=== PATIENT | female | born 1965 | race Caucasian/White ===

== ENCOUNTER 2023-06-14 10:46 | Emergency (ER) | payer OTHER ==
[~2023-06-14] VITALS: Ht 167.6 cm; Wt 67.1 kg
--- NOTE | 2023-06-14 11:59 | NUR ---
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
[2023-06-14] MEDS ORDERED: ibuprofen tablet 400 MG TABLET PO ONE (12:50)
[2023-06-14] MEDS ORDERED: orphenadrine citrate 60mg/2ml inj. IM ONE (12:50)
[2023-06-14] MEDS ORDERED: HYDROcodone/acetaminophen 10/325mg tab PO ONE (12:50)
[2023-06-14] MEDS ORDERED: IBUP-1986 PO (13:30)
[2023-06-14] MEDS ORDERED: CYCL-394 PO (13:30)
[2023-06-14 13:51] VITALS: BP 120/78; PULSE 62; RESP 16; TEMP 98.4; O2SAT 99
== END 2023-06-14 13:54 | disposition home or self-care (01) ==
LOC: ER 10:47
DX: M54.59 Other low back pain (principal); Z88.8 Allergy status to other drugs, medicaments and biological substances
CPT/HCPCS: 72131; 96372; 99285; J2360